=== PATIENT | female | born 1950 | race Caucasian/White ===

== ENCOUNTER → 2018-09-01 | Outpatient (CLI) | payer MEDICARE ==
--- NOTE | 2018-09-01 15:23 | KCIC ---
EXAM: Pelvis, single view. HISTORY: Pain. COMPARISON: None. FINDINGS: Frontal views of the pelvis are obtained. There is a right hip arthroplasty in expected position. There is left hip joint space narrowing with subchondral sclerosis, subchondral cyst formation and marginal osteophytosis. There is degenerative change at the lower lumbar levels. IMPRESSION: 1. Right hip arthroplasty in expected position. 2. Moderate to severe left hip osteoarthritis. 3. Degenerative change at the lower lumbar levels. Electronically signed by: Ysabel Scanlon MD (09/01/2018 3:19 PM) [facility]
== END | disposition home or self-care (01) ==
LOC: KCIC 14:56
PROVIDERS: ATTEND Internal Medicine Rheumatology
DX: M47.896 Other spondylosis, lumbar region (principal); M16.12 Unilateral primary osteoarthritis, left hip; M25.852 Other specified joint disorders, left hip
CPT/HCPCS: 72170